=== PATIENT | female | born 1960 | race Caucasian/White ===

== ENCOUNTER → 2018-07-29 | Outpatient (CLI) | payer OTHER ==
[~2018-07-29] VITALS: Ht 165.1 cm; Wt 97.3 kg
[~2018-07-29] MED LIST: ACETAMINOPHEN325 M1 PO; AMBEREN; AMLODIPINE BESY10 MG PO; ASPIRIN81 M2 PO; BACLOFEN 10MG T10 MG PO; BUPRENORPHINE HC2 MG SL; BYSTOLIC 5 MG5 M1 PO; CALCIUM 600 MG1 EAC3; CEFDINIR300 MG PO; DEMEROL50 MG PO; ESTRADIOL1 EAC2 TRANSDERM; EXCEDRIN CAPLE1 EACH PO; FISH OIL 500 M1 EAC2 PO; FISHOIL; IBUPROFEN 200200 M1 PO; IBUPROFEN 400400 M1 PO; IBUPROFEN 800800 M1 PO; INDOMETHACIN 2525 MG PO; IRBESARTAN300 MG PO; KLONOPIN0.5 MG PO; LEVOTHYROXIN0.025 MG PO; LISINOPRIL10 MG PO; LOPRESSOR25 PO; MEDROLDOSEPACK PO; MOBIC7.5 MG PO; MULTI-VITAMIN1 EAC5 PO; NAPROSYN500 MG PO; NEO-POLYMYXIN-H10 ML OTIC; NOHOMEMEDICATIONS; NORTRIPTYLINE H25 M3 PO; NORVASC2.5 MG PO; NUCYNTA75 MG PO; UNICOMPLEX M TA1 TA1 PO; VIVELLE-DOT1 EAC1; VIVELLE-DOT1 EAC1 TD; VIVELLE1 EAC1; ZOFRAN ODT4 MG PO
--- NOTE | ~2018-07-29 | HPC ---
[facility] [address] [place] [address] PAIN MANAGEMENT CONSULTATION Name: HERMELINDO SIMON Room #: REG KWESI Granados#: [id number] Admission: 07/29/18 ������������������ Attend Phys: Sanchez Farfan DO Discharge: ������������������ Date of : 60 Report #: [id number] THIS REPORT FOR: //name// CC: Sanchez Noriega DATE OF SERVICE: 07/29/2018 CHIEF COMPLAINT: Low back pain, lower extremity pain with paresthesias. HISTORY OF PRESENT ILLNESS: As you know, the patient is a 58-year-old female who has been referred to our clinic by her primary care team for evaluation for chronic low back pain. She is also experiencing chronic neck pain and bilateral head pain. She has been referred to our clinic to discuss options for treatment for lumbar radicular symptoms. She denies injury or trauma that may have led to symptom recurrence. We have seen the patient in the past for cervical issues and periodically discussed lumbar radiculopathy. She returns to discuss this again today. She has denied injury or trauma that may have led to symptom recurrence. She has been referred back to our clinic to discuss treatment options for chronic low back symptoms. ALLERGIES: HYDROMORPHONE, KETOROLAC, TEKTURNA, CODEINE, LISINOPRIL, OXYCODONE, METAXALONE, FENTANYL, TRAMADOL, GABAPENTIN, NORTRIPTYLINE AND FLEXERIL. CURRENT MEDICATIONS: Estradiol 1 patch transdermal per week, irbesartan 300 mg once a day, amlodipine 10 mg per day, multivitamin 1 tab per day. SOCIAL HISTORY: The patient denies tobacco, alcohol, IV or illicit drug use. She is unaccompanied today. IMAGING: There is no new imaging available. PHYSICAL EXAMINATION: VITAL SIGNS: Blood pressure 140/82, pulse 82, respiratory rate 16 and unlabored. The patient is 98% on room air. Height 5 feet 5 inches tall, weight 214.6 pounds, BMI calculated 35.7. GENERAL: Well-developed, well-nourished, well-hydrated exogenously obese 58-year-old female appearing stated age, placing current pain score 9/10. HEENT: Normocephalic, atraumatic. Pupils equal, round, reactive to light. Extraocular muscles are intact. Sclerae nonicteric without injection. NEUROLOGIC: Cranial nerves 2-12 grossly intact. Speech is fluent. The patient deemed a good historian. LUNGS: Clear. No wheeze, rhonchi or rales. CARDIOVASCULAR: Regular. No appreciable gallop, no rub. ABDOMEN: Soft, obese, normoactive bowel sounds. [address] [address] PAIN MANAGEMENT CONSULTATION Name: HERMELINDO SIMON Room #: REG Danya Granados#: [id number] Admission: 07/29/18 ������������������ Attend Phys: Sanchez Farfan DO Discharge: ������������������ Date of : 60 Report #: [id number] EXTREMITIES: Show no clubbing, no cyanosis, and no edema. MUSCULOSKELETAL: Lower extremity strength appears symmetrical 5/5, intact to light touch from L1 through S2 dermatomes. Seated straight leg raising negative. Supine straight leg raising negative. Brigid's test is negative. Modified Gaenslen's positive for axial low back pain. Ankle clonus negative. Babinski is negative. ASSESSMENT: 1. Possible lumbar radiculopathy. 2. Lumbosacral spondylosis with reported radiculopathy. 3. Chronic low back pain. 4. Chronic intractable pain. PLAN: 1. The patient returns today in followup visit with back pain and bilateral lower extremity pain that is intermittent in nature. She apparently has discussed her case with her PCP and she was referred back to our clinic after reinitiation of back pain and lower extremity symptoms similar to previous evaluations began without inciting injury or trauma. She indicates that she has tried conservative treatment such as [id number] medications and even tried some formalized physical therapy, though these notes are not available to us. Despite these conservative interventions, the patient continued to experience pain. She was referred back to our clinic to discuss options for treatment. We discussed treatment options with the patient that include physical therapy, stretching exercises, core strengthening and a concerted effort at weight loss. We discussed medication management, initiating a nonsteroidal anti-inflammatory on a consistent basis for axial back pain. We discussed lumbar epidural injections, for which the patient was referred to our clinic and also surgical options. After reviewing the risks and benefits of all proposed treatment options, the patient chose to move forward with injection therapy. 2. The patient was advised that third republican payer restrictions require the authorization be obtained before the patient could undergo any type of interventional treatment. We will begin the authorization process immediately and contact the patient once this has been completed. We will have her return to discuss the possibility of undergoing an epidural injection and at that visit, we will also discuss the risks and benefits of each of the proposed treatment options and determine if she wishes to move forward with interventional injections. 3. No medication changes made at today's visit. We did reinitiate the patient on meloxicam that she took in the past. This will help with axial back pain issues. We have given the patient a 7.5 mg tablet 1 tab p.o. b.i.d., given her #60 tablets and 2 refills essentially 3 months' worth of medication. 4. We will see the patient back in followup visit for possible interventional [facility] [address] [place] [address] PAIN MANAGEMENT CONSULTATION Name: HERMELINDO SIMON Room #: REG KWESI Granados#: [id number] Admission: 07/29/18 ������������������ Attend Phys: Sanchez Farfan DO Discharge: ������������������ Date of : 60 Report #: [id number] treatment. Otherwise, we will see her back at normal followup in 3 months for medication management. ��������������������������������������������� ���������������������������������������� By: ��������������������������������������������� [id number] Sanchez Farfan DO /nt
[2018-07-29 09:49] VITALS: BP 140/82
--- NOTE | 2018-07-29 10:13 | NUR ---
Pain Clinic Assessment: 1. History of Osteoarthritis: Not Applicable History of Rheumatoid Arthritis: Not Applicable 2. Height: 5 ft. 5 in. 165.1 cm. Weight: 214.6 lb. oz. 97.342 kg. Patient's BMI: 35.7 3. Vital Signs: BP: 140/82 Pulse: 82 Resp: 16 Temp: 02 Sat: 98 ECG Mon: 4. Pain Intensity: 9 5. Fall Risk: Dizziness: N Needs help standing or walking: N Fallen in the last 3 months: N Fall risk comments: 6. Patient on Blood Thinner: None 7. History of Hypertension: Y 8. Opioid Therapy greater than 6 weeks: N Opiate Contract Signed: 9. Risk Assessment Tool Provided: LOW RISK 0/0 10. Functional Assessment Tool: 11. Recreational Drug Use: Never Drug Type: Tobacco Use: Never Smoker Tobacco Type: Amount or Packs/day: How Many Years: Alcohol Use: No Frequency: Quant:
== END ==
LOC: PAIN 06:57
DX: M47.27 Other spondylosis with radiculopathy, lumbosacral region (principal); G89.4 Chronic pain syndrome; Z79.899 Other long term (current) drug therapy

== ENCOUNTER → 2018-08-19 | Outpatient (CLI) | payer OTHER ==
[~2018-08-19] VITALS: Ht 165.1 cm; Wt 97.5 kg
[~2018-08-19] MED LIST changes: +VITAMIN D1000 UNI1 PO
[2018-08-19 10:44] VITALS: BP 122/84
--- NOTE | 2018-08-19 10:50 | NUR ---
Pain Clinic Assessment: 1. History of Osteoarthritis: Not Applicable History of Rheumatoid Arthritis: Not Applicable 2. Height: 5 ft. 5 in. 165.1 cm. Weight: 215.0 lb. oz. 97.524 kg. Patient's BMI: 35.8 3. Vital Signs: BP: 122/84 Pulse: 86 Resp: 16 Temp: 02 Sat: 96 ECG Mon: 4. Pain Intensity: 9-10 5. Fall Risk: Dizziness: N Needs help standing or walking: N Fallen in the last 3 months: N Fall risk comments: 6. Patient on Blood Thinner: None 7. History of Hypertension: Y 8. Opioid Therapy greater than 6 weeks: N Opiate Contract Signed: 9. Risk Assessment Tool Provided: LOW RISK 0/0 10. Functional Assessment Tool: 11. Recreational Drug Use: Never Drug Type: Tobacco Use: Never Smoker Tobacco Type: Amount or Packs/day: How Many Years: Alcohol Use: No Frequency: Quant:
--- NOTE | 2018-08-25 07:41 | HPC ---
[facility] [place] [address] PAIN MANAGEMENT CONSULTATION Name: ALFREDHERMELINDO D Room #: REG [facility].#: [id number] Admission: 08/19/18 ������������������ Attend Phys: Sanchez Farfan DO Discharge: ������������������ Date of : 60 Report #: [id number] THIS REPORT FOR: //name// CC: Sanchez Noriega MD DATE OF SERVICE: 08/19/2018 REFERRING PHYSICIAN: Lidya Rust, nurse practitioner. CHIEF COMPLAINT: Low back pain, lower extremity pain with paresthesias and chronic neck pain. HISTORY OF PRESENT ILLNESS: As you know, the patient is a 58-year-old female referred to our service by her primary care physician for evaluation of chronic lumbar back pain. She has been experiencing also chronic neck pain, bilateral hand pain and head pain. She returns today in followup visit having received precertification to undergo lumbar epidural injection to address lumbar radicular symptoms, but has requested that we begin the process of gaining authorization for her to undergo a cervical epidural injection under fluoroscopic guidance to address the neck symptoms she has been experiencing of late. She returns for the first in a series of lumbar epidural injections. ALLERGIES: HYDROMORPHONE, KETOROLAC, TEKTURNA, CODEINE, LISINOPRIL, OXYCODONE, METAXALONE, FENTANYL, TRAMADOL, GABAPENTIN, NORTRIPTYLINE and FLEXERIL. CURRENT MEDICATIONS: See chart. SOCIAL HISTORY: The patient denies tobacco, alcohol or IV or illicit drug use. She is unaccompanied today. IMAGING DATA: There is no new imaging available. PHYSICAL EXAMINATION: VITAL SIGNS: Blood pressure 122/84 and pulse 86, respiratory rate 16 and unlabored. The patient is 96% on room air. Height 5 feet 5 inches tall, weight 215 pounds and BMI calculated 35.8. GENERAL: Well-developed, well-nourished and well-hydrated exogenously obese 58-year-old female appearing stated age, pain is rated today at 9-10/10. HEENT: Normocephalic and atraumatic. Pupils equal, round and reactive to light. Extraocular muscles are intact. Sclerae nonicteric without injection. NEUROLOGICAL: Cranial nerves 2 through 12 grossly intact. Speech is fluent. The patient deemed a good historian. EXTREMITIES: Show no clubbing, no cyanosis and no edema. [address] [address] PAIN MANAGEMENT CONSULTATION Name: ALFREDHERMELINDO Room #: REG [facility]#: [id number] Admission: 08/19/18 ������������������ Attend Phys: Sanchez Farfan DO Discharge: ������������������ Date of : 60 Report #: [id number] MUSCULOSKELETAL: Lower extremity strength is symmetrical 5/5. Muscle bulk and tone is symmetrical when comparing left lower extremity to right. Seated straight leg raising negative. Supine straight leg raising negative. Brigid's test is negative. Modified Gaenslen's positive for axial low back pain. Ankle clonus negative. Babinski is negative. The patient does have pain with cervical provocation specifically with rotation and extension. Spurling test is equivocal. Upper extremity strength is 5/5. Muscle bulk and tone equal and symmetrical. There are noted changes in the hands, which is believed to be possible rheumatoid arthritis, though the joints of the MIPs, DIPs and PIPs are all affected by changes. ASSESSMENT: 1. Symptomatic lumbar radiculopathy. 2. Lumbosacral spondylosis with radiculopathy. 3. Mild cervical radiculopathy. 4. Cervical spondylosis with radiculopathy. 5. Bilateral hand pain. 6. Chronic intractable pain. PLAN: 1. The patient has returned today in followup visit having received precertification to undergo lumbar epidural injection under fluoroscopic guidance. We have discussed with the patient the risks and the benefits of this procedure. These risks include but are not necessarily limited to bleeding, bruising, infection, worsening pain, no relief of pain, also risk of temporary or permanent muscle weakness, temporary or permanent nerve damage, possible paralysis, post-dural puncture headache and . The patient states understood and wished to proceed. 2. The patient has requested that we begin the authorization process and have her undergo a cervical epidural injection under fluoroscopic guidance. I have advised the patient that she can receive 3 injections in a 6 months period whether this be in the lumbar spine, in the cervical spine or combination of both. If she undergoes a cervical epidural injection at the next visit, this will reduce our potential treatment of the lumbar spine to no greater than epidural injections in the 6 months. The patient states she understood. States that her most impressing concern at this point is the cervical region and wishes us to begin the authorization process. We have agreed to begin the authorization process and we will have the patient return once we have achieved this authorization to undergo a cervical epidural injection. We will contact the patient by phone once the authorization has been completed. PROCEDURE NOTE DESCRIPTION OF PROCEDURE: L5-S1 right paramedian epidural steroid injection under fluoroscopic guidance. [address] [address] PAIN MANAGEMENT CONSULTATION Name: HERMELINDO SIMON Room #: REG KWESI Granados#: [id number] Admission: 08/19/18 ������������������ Attend Phys: Sanchez Farfan DO Discharge: ������������������ Date of : 60 Report #: [id number] This is the first procedure of the first series that the patient is undergoing. After obtaining written consent, the patient was taken back to the fluoroscopy suite, placed in a prone position with pillow under the abdomen to decrease lumbar lordosis. The skin overlying the lumbosacral area was then prepped and draped in aseptic fashion. The L5-S1 vertebral interspace was then identified by AP fluoroscopy. The skin and subcutaneous tissue overlying the target site of injection was anesthetized with 3 mL 1% lidocaine. A 20-gauge 3-1/2 inch Tuohy needle was then advanced under fluoroscopic guidance towards the epidural space using a right paramedian approach. The epidural space was identified using loss of resistance to air technique. After negative aspiration for heme or cerebrospinal fluid, a total of 1 mL of Omnipaque was injected. A lumbar epidurogram was confirmed using both AP and lateral fluoroscopy. After negative aspiration for heme or cerebrospinal fluid, 5 mL of a solution containing 2 mL 40 mg per mL, 80 mg total triamcinolone, 3 mL of lidocaine 1% was injected in increments. Contrast spread was noted posterior epidural space. The needle was then retracted approximately half way and needle tract flushed with 1 mL of 1% lidocaine. Needle was then removed. There were no apparent sensory or motor deficits in the lower extremity following the procedure. A sterile bandage was placed over the injection site. The heart rate, pulse, oximetry and blood pressure were continuously monitored after the procedure. There were no apparent complications. The patient tolerated the procedure well and was carefully escorted to the recovery room in stable condition. There were no apparent complications. After meeting discharge criteria, the patient was then discharged home. ��������������������������������������������� <ELECTRONICALLY SIGNED> ���������������������������������������� By: Sanchez Farfan DO ��������������������������������������������� 08/25/18 0741 [id number] Sanchez Farfan DO /nt
== END | disposition home or self-care (01) ==
LOC: PAIN 06:49
DX: M47.27 Other spondylosis with radiculopathy, lumbosacral region (principal); M47.22 Other spondylosis with radiculopathy, cervical region; G89.29 Other chronic pain; E66.9 Obesity, unspecified; Z88.8 Allergy status to other drugs, medicaments and biological substances; Z68.35 Body mass index [BMI] 35.0-35.9, adult

== ENCOUNTER → 2018-09-16 | Outpatient (CLI) | payer OTHER ==
[~2018-09-16] VITALS: Ht 165.1 cm; Wt 95.6 kg
[~2018-09-16] MED LIST changes: +SINGULAIR 10 MG10 M1 PO
--- NOTE | ~2018-09-16 | HPC ---
[facility] [address] [place] [address] PAIN MANAGEMENT CONSULTATION Name: HERMELINDO SIMON Room #: REG BOODanya Granados#: [id number] Admission: 09/16/18 ������������������ Attend Phys: Sanchez Farfan DO Discharge: ������������������ Date of : 60 Report #: [id number] THIS REPORT FOR: //name// CC: CAIN Guzman MD DATE OF SERVICE: 09/16/2018 REFERRING PHYSICIAN: Leonid Noriega M.D. CHIEF COMPLAINT: Low back pain, lower extremity pain and paresthesias and chronic neck pain. HISTORY OF PRESENT ILLNESS: As you know, the patient is a 58-year-old female returning today in followup visit to undergo next in the series of lumbar epidural injections under fluoroscopic guidance. The patient is placing her current pain score at 6/10. She states previous lumbar epidural injection gave greater than 50% improvement in overall pain, lasting for nearly 1 month. She returns today in followup visit to undergo next in the series of epidural injections in the lumbar spine to address lumbar radicular symptoms. She also wishes to discuss the possibility of undergoing a cervical epidural injection under fluoroscopic guidance to address neck pain. She has had these in the past and she found good efficacy. She wishes to discuss possibly utilizing the third epidural injection to address cervical radiculopathy. ALLERGIES: HYDROMORPHONE, KETOROLAC, TEKTURNA, CODEINE, LISINOPRIL, OXYCODONE, METAXALONE, FENTANYL, TRAMADOL, GABAPENTIN, NORTRIPTYLINE AND FLEXERIL. CURRENT MEDICATIONS: See list in chart. SOCIAL HISTORY: The patient denies tobacco, alcohol, IV or illicit drug use. She is unaccompanied today. IMAGING: No new imaging available. PHYSICAL EXAMINATION: VITAL SIGNS: Blood pressure 135/86, pulse is 80 and respiratory rate 16 and unlabored. The patient is 98% on room air. Height 5 feet 5 inches tall, weight 210.8 pounds and BMI calculated 35.1. GENERAL: Well-developed, well-nourished, well-hydrated exogenously obese 58-year-old female, appearing stated age, placing current pain score at 6/10. HEENT: Normocephalic, atraumatic. Pupils equal, round and reactive to light. Extraocular muscles are intact. Sclerae nonicteric, without injection. EXTREMITIES: Show no clubbing, no cyanosis and no edema. [facility] [address] [place] [address] PAIN MANAGEMENT CONSULTATION Name: HERMELINDO SIMON Angélica Room #: REG [facility]#: [id number] Admission: 09/16/18 ������������������ Attend Phys: Sanchez Farfan DO Discharge: ������������������ Date of : 60 Report #: [id number] MUSCULOSKELETAL: Lower extremity strength remains symmetrical again today at 5/5. Seated straight leg raising negative. Supine straight leg raising negative. Brigid's test is negative. Modified Gaenslen's is positive for axial low back pain. Ankle clonus negative. Babinski is negative. Upper extremity strength is equal and symmetrical, 5/5. Spurling's test is equivocal. Muscle bulk and tone equal and symmetrical in the upper extremities. There are changes of the hands at the MIP, DIP and PIPs bilaterally. ASSESSMENT: 1. Symptomatic lumbar radiculopathy. 2. Lumbosacral spondylosis with radiculopathy. 3. Mild cervical lumbar radiculopathy. 4. Cervical spondylosis with radiculopathy. 5. Bilateral hand pain. 6. Chronic intractable pain. PLAN: 1. The patient returns today in followup visit requesting to undergo lumbar epidural injection under fluoroscopic guidance. She reports 50% improvement in overall pain, lasting for nearly a month with the previous epidural injection. She returns today requesting to undergo the next in the series of lumbar epidural injections, which would be the second in the series in hopes of improving pain further. She has been advised of the risks and benefits. She states understood and wished to proceed. 2. The patient has requested that we begin the process of gaining preauthorization for her to undergo a cervical epidural injection under fluoroscopic guidance. This would be the third epidural injection in the 6 months, which would then preclude us from providing epidural injections until 02/19/2019. The patient will consider whether she wishes to use this for the cervical region or the lumbar region. We will gain authorization for the cervical area if she chooses to move in this direction. Otherwise, we will have a preexisting approval for the lumbar injection. 3. We will see the patient back in followup visit on an as-needed basis for either a cervical epidural injection to address chronic neck pain or to complete the series of lumbar epidural injections. We did not make the patient followup visit. She will follow up on as needed. 4. No medication changes made at today's visit. PROCEDURE NOTE PROCEDURE: L5-S1 interlaminar epidural steroid injection under fluoroscopic guidance. After obtaining written consent, the patient was taken back to fluoroscopy suite, placed in prone position with pillow under her abdomen to decrease lumbar [address] [address] PAIN MANAGEMENT CONSULTATION Name: HERMELINDO SIMON Room #: REG CL Jordon#: [id number] Admission: 09/16/18 ������������������ Attend Phys: Sanchez Farfan DO Discharge: ������������������ Date of : 60 Report #: [id number] lordosis. Skin overlying the lumbosacral area then prepped and draped in an aseptic fashion. The L5-S1 vertebral interspace identified by AP fluoroscopy. Skin and subcutaneous tissue overlying target site of injection was anesthetized with 3 mL of 1% lidocaine. A 20-gauge 3-1/2 inch Tuohy needle advanced under fluoroscopic guidance towards the epidural space using a midline approach. Epidural space identified using loss of resistance to air technique. After negative aspiration for heme or cerebrospinal fluid, 5 mL of a solution containing 2 mL of 40 mg per mL 80 mg total triamcinolone, 3 mL lidocaine 1% injected slowly. Needle retracted detention, flushed with 1 mL of 1% lidocaine and removed. Sterile bandage placed over the injection site. No new motor deficits present in the lower extremity following procedure. The patient tolerated the procedure well, carefully escorted to the recovery room in stable condition. No apparent complications. After meeting discharge criteria, the patient discharged home. ��������������������������������������������� ���������������������������������������� By: ��������������������������������������������� [id number] Sanchez Farfan DO /nt
[2018-09-16 09:59] VITALS: BP 135/86
--- NOTE | 2018-09-16 10:14 | NUR ---
Pain Clinic Assessment: 1. History of Osteoarthritis: Not Applicable History of Rheumatoid Arthritis: Not Applicable 2. Height: 5 ft. 5 in. 165.1 cm. Weight: 210.8 lb. oz. 95.618 kg. Patient's BMI: 35.1 3. Vital Signs: BP: 135/86 Pulse: 80 Resp: 16 Temp: 02 Sat: 98 ECG Mon: 4. Pain Intensity: 6 5. Fall Risk: Dizziness: N Needs help standing or walking: N Fallen in the last 3 months: N Fall risk comments: 6. Patient on Blood Thinner: None 7. History of Hypertension: Y 8. Opioid Therapy greater than 6 weeks: N Opiate Contract Signed: 9. Risk Assessment Tool Provided: LOW RISK 0/0 10. Functional Assessment Tool: 42/ 11. Recreational Drug Use: Never Drug Type: Tobacco Use: Never Smoker Tobacco Type: Amount or Packs/day: How Many Years: Alcohol Use: No Frequency: Quant:
== END | disposition home or self-care (01) ==
LOC: PAIN 06:51
DX: M47.27 Other spondylosis with radiculopathy, lumbosacral region (principal); M47.22 Other spondylosis with radiculopathy, cervical region; G89.29 Other chronic pain; E66.9 Obesity, unspecified; Z88.8 Allergy status to other drugs, medicaments and biological substances; Z68.35 Body mass index [BMI] 35.0-35.9, adult; Z86.73 Personal history of transient ischemic attack (TIA), and cerebral infarction without residual deficits; Z79.899 Other long term (current) drug therapy

== ENCOUNTER → 2020-06-06 | Outpatient (CLI) | payer OTHER ==
[~2020-06-06] VITALS: Ht 165.1 cm; Wt 96.6 kg
[~2020-06-06] MED LIST changes: +ASPIRIN EC81 M1 PO; +BYSTOLIC10 MG PO; +DAILY MULTIPLE1 EACH PO; +DEMEROL100 MG PO
[2020-06-06 10:30] VITALS: BP 143/80
--- NOTE | 2020-06-06 10:45 | NUR ---
Pain Clinic Assessment: 1. History of Osteoarthritis: HANDS FEET History of Rheumatoid Arthritis: HANDS 2. Height: 5 ft. 5 in. 165.1 cm. Weight: 213.0 lb. oz. 96.616 kg. Patient's BMI: 35.4 3. Vital Signs: BP: 143/80 Pulse: 63 Resp: 14 Temp: 02 Sat: 100 ECG Mon: 4. Pain Intensity: 8 5. Fall Risk: Dizziness: Y Needs help standing or walking: N Fallen in the last 3 months: N Fall risk comments: 6. Patient on Blood Thinner: None 7. History of Hypertension: Y 8. Opioid Therapy greater than 6 weeks: N Opiate Contract Signed: 9. Risk Assessment Tool Provided: LOW RISK 0/0 10. Functional Assessment Tool: 11. Recreational Drug Use: Never Drug Type: Tobacco Use: Never Smoker Tobacco Type: Amount or Packs/day: How Many Years: Alcohol Use: No Frequency: Quant:
--- NOTE | 2020-06-07 11:53 | HPC ---
[facility] [place] [address] PAIN MANAGEMENT CONSULTATION Name: HERMELINDO SIMON Room #: REG Danya Roberta#: [id number] Admission: 06/06/20 Attend Phys: Sanchez Farfan DO Discharge: Date of : 60 Report #: [id number] THIS REPORT FOR: cc: Maulik Hernandez Russell J. DO Johnson, James E. DO ~ DATE OF SERVICE: 06/06/2020 REFERRING PHYSICIAN: Maulik Hernandez DO CHIEF COMPLAINT: Low back pain, lower extremity pain with paresthesias, chronic neck pain with upper extremity paresthesias. HISTORY OF PRESENT ILLNESS: As you know, the patient is a pleasant 60-year-old female who has returned today in followup visit to discuss ongoing low back pain, bilateral lower extremity pain with paresthesias. The patient indicates pain level today of about 8/10. She also is experiencing neck pain with bilateral upper extremity symptoms for which she also places pain at 8/10. She states that she returned today per the request of her PCP to address cervical radicular pain, specifically and then look towards the lumbar radicular symptoms as a secondary treatment option. She indicates no injury or trauma that has led to symptom reoccurrence of her cervical radiculopathy. The patient has been seen in the past undergoing injections with good benefit. She returns today in followup visit per the request of her primary care physician to discuss the possibility of undergoing next in the series of cervical epidural injections. ALLERGIES: HYDROMORPHONE, KETOROLAC, TEKTURNA, CODEINE, LISINOPRIL, OXYCODONE, METAXALONE, FENTANYL, TRAMADOL, GABAPENTIN, NORTRIPTYLINE AND FLEXERIL. CURRENT MEDICATIONS: See chart. SOCIAL HISTORY: The patient denies tobacco, alcohol, IV or illicit drug use. She is unaccompanied today. IMAGING: No new imaging available. PHYSICAL EXAMINATION: VITAL SIGNS: Blood pressure 143/80, pulse is 63, respiratory rate 14 and unlabored. The patient is 100% on room air. Height 5 feet 5 inches tall, weight 213 pounds, and BMI calculated 35.4. GENERAL: Well-developed, well-nourished, well-hydrated exogenously obese 60-year-old female appearing stated age, pain is rated today involving the cervical spine at 8/10. HEENT: Normocephalic, atraumatic. Pupils equal, round and reactive. NEUROLOGIC: Speech is fluent. The patient is wearing a mask in compliance with COVID-19 regulations[address] [address] PAIN MANAGEMENT CONSULTATION Name: HERMELINDO SIMON Room #: REG [facility] Roberta#: [id number] Admission: 06/06/20 Attend Phys: Sanchez Farfan DO Discharge: Date of : 60 Report #: [id number] EXTREMITIES: Show no clubbing, no cyanosis, and no appreciable edema. MUSCULOSKELETAL: Upper extremity strength appears equal and symmetrical 5/5. Muscle bulk and tone equal and symmetrical in upper extremities. Cervical provocation testing is met with increasing pain towards the right. Spurling's test is equivocal. Deep tendon reflexes equal and symmetrical at biceps, brachialis and triceps. ASSESSMENT: 1. Cervical radiculopathy. 2. Cervical spondylosis with radiculopathy. 3. Chronic cervicalgia. 4. Chronic intractable pain. 5. Low back pain. 6. Lumbar radiculopathy. 7. Lumbosacral spondylosis with radiculopathy. PLAN: 1. The patient returns today in followup visit with 2 different discrete pain generators, the one that is most problematic at present is the cervical region that shows recurrence of cervical radiculopathy based on physical exam and the distribution of symptoms the patient is experiencing pain upon. She is also complaining of low back pain, bilateral lower extremity pain consistent with her lumbar radicular symptoms that we have treated in the past with epidural injections. She returns today to discuss epidural injection to address cervical radicular symptoms initially and then look towards addressing the lumbar spine, if symptoms persist. 2. The patient has been advised risks and benefits of a repeated cervical epidural injection. These risks include but are not necessarily limited to bleeding, bruising, infection, worsening pain, no relief of pain, also risk of temporary or permanent muscle weakness, temporary or permanent nerve damage, possible paralysis and . The patient states understood and wished to proceed. 3. No medication changes made at today's visit. The patient will continue current medical therapy as prior prescribed. 4. We plan to see the patient back in followup visit on an as needed basis for next in the series of cervical epidural injections. We have tentatively made the appointment for the patient in 30 days. We are hopeful the patient will see good and prolonged benefit, will not need to undergo the injection at that time, but we will be available to see her back if necessary. PROCEDURE NOTE DESCRIPTION OF PROCEDURE: C7-T1 cervical epidural steroid injection under fluoroscopic guidance. [address] [address] PAIN MANAGEMENT CONSULTATION Name: HERMELINDO SIMON [id number] Admission: 06/06/20 Attend Phys: Sanchez Farfan DO Discharge: Date of : 60 Report #: [id number] After obtaining written consent, the patient was taken back to fluoroscopy suite, placed in prone position with pillow under chest and forehead to decrease cervical lordosis. Skin overlying cervical area then prepped and draped in aseptic fashion. C7-T1 cervical interspace identified by AP fluoroscopy. Skin and subcutaneous tissue overlying target site injection anesthetized with 3 mL of 1% lidocaine. A 20-gauge 3-1/2 inch Tuohy needle advanced under fluoroscopic guidance towards the epidural space using a midline approach. Epidural space identified using loss of resistance to air technique. After negative aspiration for heme or cerebrospinal fluid, 1 mL of Omnipaque injected. A cervical epidurogram was confirmed using both AP and oblique fluoroscopy. After negative aspiration for heme or cerebrospinal fluid, 5 mL of a solution containing 2 mL 40 mg per mL, 80 mg total triamcinolone along with 3 mL of lidocaine 1% injected slowly. Needle retracted long term, flushed with 1 mL of 1% lidocaine and removed. Sterile bandage placed over injection site. There were no new motor deficits present in the upper extremities following procedure. The patient tolerated procedure well, carefully escorted to recovery room in stable condition. No apparent complications. After meeting discharge criteria, the patient discharged home. <ELECTRONICALLY SIGNED> By: Sanchez Farfan DO 06/07/20 1153 1622 1714 Sanchez Farfan, DO /nt
== END | disposition home or self-care (01) ==
LOC: PAIN 04-25 06:54
PROVIDERS: ATTEND Anesthesiology Pain Medicine
DX: M47.22 Other spondylosis with radiculopathy, cervical region (principal); M48.02 Spinal stenosis, cervical region; M54.2 Cervicalgia; G89.29 Other chronic pain; M47.26 Other spondylosis with radiculopathy, lumbar region; M54.5 Low back pain; Z98.890 Other specified postprocedural states; Z79.899 Other long term (current) drug therapy; Z86.73 Personal history of transient ischemic attack (TIA), and cerebral infarction without residual deficits

== ENCOUNTER → 2020-07-05 | Outpatient (CLI) | payer OTHER ==
[~2020-07-05] VITALS: Ht 165.1 cm; Wt 94.6 kg
[2020-07-05 11:27] VITALS: BP 129/78
--- NOTE | 2020-07-05 11:39 | NUR ---
Pain Clinic Assessment: 1. History of Osteoarthritis: HANDS FEET History of Rheumatoid Arthritis: HANDS 2. Height: 5 ft. 5 in. 165.1 cm. Weight: 208.6 lb. oz. 94.620 kg. Patient's BMI: 34.7 3. Vital Signs: BP: 129/78 Pulse: 65 Resp: 14 Temp: 02 Sat: 98 ECG Mon: 4. Pain Intensity: 10 5. Fall Risk: Dizziness: Y Needs help standing or walking: N Fallen in the last 3 months: N Fall risk comments: 6. Patient on Blood Thinner: None 7. History of Hypertension: Y 8. Opioid Therapy greater than 6 weeks: N Opiate Contract Signed: 9. Risk Assessment Tool Provided: LOW RISK 0/0 10. Functional Assessment Tool: 42 11. Recreational Drug Use: Never Drug Type: Tobacco Use: Never Smoker Tobacco Type: Amount or Packs/day: How Many Years: Alcohol Use: No Frequency: Quant:
--- NOTE | 2020-07-07 14:52 | HPC ---
[facility] [place] [address] [place] [address] PAIN MANAGEMENT CONSULTATION Name: HERMELINDO SIMON Room #: REG [facility] Charity.#: [id number] Admission: 07/05/20 Attend Phys: Sanchez Farfan DO Discharge: Date of : 60 Report #: [id number] THIS REPORT FOR: cc: Maulik Hernandez Russell J. DO Johnson, James E. DO ~ DATE OF SERVICE: 07/05/2020 REFERRING PHYSICIAN: Maulik Hernandez DO CHIEF COMPLAINT: Low back, bilateral lower extremity pain with paresthesias. HISTORY OF PRESENT ILLNESS: As you know, the patient is a very pleasant 60-year-old female returning in followup visit to undergo lumbar epidural injection under fluoroscopic guidance. She is placing her current pain score at 10/10. She indicates no specific injury or trauma that may have led to symptom development. She states her pain has just slowly and progressively returned. At our visit of 06/06/2020, the patient was complaining of pain level of 8/10, so she has had a significant increase in symptoms. She is denying any injury or trauma. She returns today to undergo lumbar epidural injection under fluoroscopic guidance. ALLERGIES: HYDROMORPHONE, KETOROLAC, TEKTURNA, CODEINE, LISINOPRIL, OXYCODONE, METAXALONE, FENTANYL, TRAMADOL, GABAPENTIN, NORTRIPTYLINE AND FLEXERIL. CURRENT MEDICATIONS: See chart. SOCIAL HISTORY: The patient denies tobacco, alcohol, IV or illicit drug use. She is unaccompanied today. IMAGING: No new imaging available. PHYSICAL EXAMINATION: VITAL SIGNS: Blood pressure 129/78, pulse 65, respiratory rate 14 and unlabored. The patient is 98% on room air. Height 5 feet 5 inches tall, weight 208.6 pounds, BMI calculated 34.7. GENERAL: Well-developed, well-nourished, well-hydrated, 60-year-old female appearing stated age, pain is rated today 10/10. HEENT: Normocephalic, atraumatic. Pupils are round, and responsive. She is wearing a mask in compliance with COVID-19 regulations. EXTREMITIES: Show no clubbing, no cyanosis, no edema. MUSCULOSKELETAL: Lower extremity strength equal and symmetrical 5/5. Muscle bulk and tone equal and symmetrical in comparing left lower extremity to right lower extremity. Seated straight leg raising is negative. Supine straight leg raising is negative. Ankle clonus is negative. Babinski is negative. [place] [address] PAIN MANAGEMENT CONSULTATION Name: HERMELINDO SIMON Room #: REG KWESI Granados#: [id number] Admission: 07/05/20 Attend Phys: Sanchez Farfan DO Discharge: Date of : 60 Report #: [id number] ASSESSMENT: 1. Symptomatic lumbar radiculopathy. 2. Lumbosacral spondylosis with radiculopathy. 3. Chronic low back pain. PLAN: 1. The patient returns today in followup visit requesting to undergo a lumbar epidural injection under fluoroscopic guidance to address recurrent lumbar radicular pain. She does report good efficacy with cervical epidural injection provided at our visit of 06/06/2020 and has been doing well from the pain standpoint in that area, but unfortunately with increasing activity at home, she has exacerbated her chronic lumbar radicular symptoms. She has returned to undergo the procedure today. She has been advised of the risks and the benefits of a lumbar epidural injection, states understood and wished to proceed. 2. No medication changes made at today's visit. The patient will continue current medical therapy as prior prescribed. 3. We plan to see the patient back in followup visit for next in the series of lumbar epidural injections on an as needed basis. We are hopeful the patient will see good and prolonged benefit with today's procedure. PROCEDURE NOTE DESCRIPTION OF PROCEDURE: L5-S1 interlaminar epidural steroid injection under fluoroscopic guidance. After obtaining written consent, the patient was taken back to fluoroscopy suite, placed in prone position with pillow under abdomen to decrease lumbar lordosis. Skin overlying lumbosacral area prepped and draped in aseptic fashion. The lumbar intervertebral spaces were identified by AP fluoroscopy. Skin and subcutaneous tissue overlying target site injection anesthetized with 3 mL of 1% lidocaine. A 20-gauge 3-1/2 inch Tuohy needle advanced under fluoroscopic guidance towards the epidural space using an interlaminar approach. Epidural space identified using loss of resistance to air technique. After negative aspiration for heme or cerebrospinal fluid, 1 mL of Omnipaque injected. Lumbar epidurogram was confirmed using both AP and lateral fluoroscopy. After negative aspiration for heme or cerebrospinal fluid, 5 mL of solution containing 2 mL 40 mg per mL, 80 mg total triamcinolone along with 3 mL of lidocaine 1% injected slowly. Needle retracted snf, flushed with 1 mL of 1% lidocaine and then removed. Sterile bandage placed over injection site. No new motor deficits present in the lower extremities following procedure. The patient tolerated procedure well, carefully escorted to recovery room in [address] [address] PAIN MANAGEMENT CONSULTATION Name: HERMELINDO SIMON Room #: REG CLDanya BolandBettieEduardoBettie#: [id number] Admission: 07/05/20 Attend Phys: Sanchez Farfan DO Discharge: Date of : 60 Report #: [id number] stable condition. No apparent complications. After meeting discharge criteria, the patient discharged home. <ELECTRONICALLY SIGNED> By: Sanchez Farfan DO 07/07/20 1452 1631 1820 Sanchez Farfan DO /nt
== END | disposition home or self-care (01) ==
LOC: PAIN 06:55
PROVIDERS: ATTEND Anesthesiology Pain Medicine
DX: M47.27 Other spondylosis with radiculopathy, lumbosacral region (principal); G89.29 Other chronic pain; Z98.890 Other specified postprocedural states; Z79.899 Other long term (current) drug therapy; Z86.73 Personal history of transient ischemic attack (TIA), and cerebral infarction without residual deficits; Z88.8 Allergy status to other drugs, medicaments and biological substances